=== PATIENT | female | born 1995 | race Caucasian/White ===

== ENCOUNTER → 2016-09-27 | Outpatient (CLI) | payer OTHER, MEDICAID ==
[~2016-09-27] MED LIST: LEVO100T83 PO; LORA10TA PO; MULT-806 PO; [UNRECOGNIZED DRUG - CODE] PO
--- NOTE | 2016-09-27 13:27 | DI ---
Indication: ITS.REASON: M25.559 PAIN IN UNSPECIFIED HIP HIP BILATERAL 2 VIEW: Comparison: None Technique: AP and frog-leg views bilaterally Findings: Patient showed symmetrical appearing joint spaces. No acute findings are seen. No fracture, dislocation, malalignments or sclerotic or blastic lesions seen. The sphericity of both femoral heads seems similar. Impression: No acute bony findings appreciated. .
== END ==
LOC: IMA 12:54
PROVIDERS: ATTEND Family Medicine
DX: M25.551 Pain in right hip (principal); M25.552 Pain in left hip